=== PATIENT | female | born 1980 | race Caucasian/White ===

== ENCOUNTER 2024-05-23 23:17 | Observation (INO) ==
[2024-05-24] MEDS: Lactated Ringers 1000 ml BAG 1,000 ML IV ONE (00:46)
[2024-05-24] MEDS: Prochlorperazine 5 mg/ml 2 ml VIAL (10 mg) IV ONE (00:46)
[2024-05-24] MEDS: Metoclopramide 5 MG/ML VIAL (10 mg) IV SLOW PU ONE (00:47)
[2024-05-24 01:01] LABS: ABS Lymphocytes 1.9 10^3/uL (1.0-4.8); ABS Monocytes 0.6 10^3/uL (0.0-0.9); ABS Neutrophils 9.9 10^3/uL (1.5-7.6); Hematocrit 36.4 % (35-45); Hemoglobin 12.1 g/dL (11.5-14.3); Lymphocyte % 15.2 %; Mean Corpuscular Hemoglobin 29.7 pg (27-33); Mean Corpuscular Hgb Conc 33.3 g/dL (31-36); Mean Corpuscular Volume 89.1 fL (80-97); Mean Platelet Volume 8.4 fL (7.5-11.2); Platelet Count 322 10^3/uL (150-450); Red Blood Count 4.08 10^6/uL (3.63-4.92); Red Cell Distribution Width 13.8 % (12-17); White Blood Count 12.4 10^3/uL (3.8-11.8)
[2024-05-24] MEDS: Magnesium Sulfate IV 1GM/100ML 1 GM/100 ML BAG IV ONE (01:30)
[2024-05-24 01:40] LABS: ALT 20 U/L (7-52); AST 16 U/L (13-39); Albumin 4.1 g/dL (3.5-5.7); Albumin/Globulin Ratio 1.8 (1-3); Alkaline Phosphatase 66 U/L (35-149); Anion Gap 7 mmol/L (2-16); Blood Urea Nitrogen 10 mg/dL (6-24); C Reactive Protein 14.64 mg/L (<8.01); CO2 Carbon Dioxide 26 mmol/L (22-32); Calcium 8.7 mg/dL (8.6-10.3); Chloride 103 mmol/L (101-111); Creatinine, Serum 0.89 mg/dL (0.51-0.95); Globulin 2.3 g/dL (2-4); Glucose 115 mg/dL (70-100); Lipase < 10 U/L (11.0-82.0); Magnesium 1.8 mg/dL (1.9-2.7); Potassium 3.7 mmol/L (3.5-5.0); Sodium 136 mmol/L (135-145); Total Bilirubin 0.6 mg/dL (0.2-1.0); Total Protein 6.4 g/dL (6.4-8.9); eGFR CKD-EPI 82.4 (>60)
[2024-05-24 02:23] LABS: Urine Appearance Clear; Urine Bilirubin Negative (Negative); Urine Blood Negative (Negative); Urine Color Light-Yellow; Urine Glucose Negative (Negative); Urine Ketones 2+ (Negative); Urine Nitrite Negative (Negative); Urine Protein Negative (Negative); Urine Specific Gravity 1.009 (1.002-1.030); Urine Urobilinogen Negative (Negative); Urine pH 5.5 (5.0-8.0)
[2024-05-24 02:58] LABS: High Sensitivity Troponin 1 Hr 3 pg/mL (<15)
[2024-05-24] MEDS ORDERED: Ondansetron 4 mg VIAL 2 MG/ML 2 ml VIAL IV PRN (03:03)
[2024-05-24] MEDS: Piperacillin/Tazobac 3.375 BAG 3.375 GM/100 ML BAG IV ONE (03:12)
[2024-05-24] MEDS: NS 0.9% 1000 ml BAG 1,000 ML IV SCH (03:13)
[2024-05-24 03:41] LABS: Urine Bacteria Absent /HPF (Absent); Urine Red Blood Cell Absent /HPF (0-Trace); Urine Squamous Epithelial Cell Present /HPF (Absent); Urine White Blood Cell Trace(0-5/hpf) /HPF (0-Trace)
[2024-05-24] MEDS ORDERED: Prochlorperazine 5 mg/ml 2 ml VIAL (10 mg) IV PRN (03:44)
[2024-05-24] MEDS ORDERED: Morphine 2 MG/ML SYRINGE IV PRN (04:15)
[2024-05-24] MEDS ORDERED: Morphine 4 MG/ML VIAL (1 ml) IV PRN (04:16)
[2024-05-24] MEDS ORDERED: Zosyn per Pharmacy NOTE FOLLOW UP SCH (05:00)
[2024-05-24 07:27] VITALS: BP 150/82
[2024-05-24] MEDS ORDERED: ZOSYN 3.375 GM Q8H per EXTENDED INFUSION IV SCH (07:30)
[2024-05-24] MEDS: ZOSYN 3.375 GM Q8H per EXTENDED INFUSION IV SCH (08:06)
== END 2024-05-24 09:18 | disposition short-term general hospital (02) ==
LOC: ED 23:17 → EDHOLD 23:17 → MED 05-24 05:58
PROVIDERS: ADMIT Internal Medicine; ATTEND Student in an Organized Health Care Education/Training Program